=== PATIENT | male | born 1995 | race Caucasian/White ===

== ENCOUNTER 2024-07-13 11:33 | Emergency (ER) | payer MEDICAID ==
[~2024-07-13] VITALS: Ht 172.7 cm; Wt 65.0 kg
[2024-07-13 11:44] VITALS: O2SAT 100
[2024-07-13] MEDS ORDERED: ONDANSETRON 4MG ODT PO ONE (12:45)
[2024-07-13] MEDS ORDERED: FAMOTIDINE 20MG TABLET PO ONE (12:45)
[2024-07-13] MEDS ORDERED: MAGNESIUM/ALUMINUM HYDROXIDE/SIMETHICONE 30ML UDC PO ONE (12:45)
[2024-07-13 12:48] LABS: BASOPHILS % 0.3 % (0.0-2.0); EOSINOPHILS % 2.6 % (0.0-5.0); HEMATOCRIT. 45.1 % (42.0-52.0); HEMOGLOBIN. 15.1 g/dL (14.0-18.0); LYMPHOCYTES % 37.6 % (20.0-50.0); MEAN CORPUSCULAR HEMOGLOBIN 28.7 pg (28.0-32.0); MEAN CORPUSCULAR HGB CONC 33.5 g/dL (31.0-37.0); MEAN CORPUSCULAR VOLUME 85.6 fL (80.0-94.0); MEAN PLATELET VOLUME 7.2 fl (7.4-10.4); MONOCYTES % 9.6 % (2.0-8.0); NEUTROPHILS % 49.9 % (40.0-76.0); PLATELET 363 x1000/uL (130-400); RED BLOOD CELL COUNT 5.27 mill/uL (4.7-6.1); RED CELL DISTRIBUTION WIDTH 12.9 % (11.6-14.6); WHITE BLOOD COUNT 6.1 x1000/uL (4.5-11.0)
[2024-07-13 13:22] LABS: CHLORIDE 103 mEq/L (98-107); POTASSIUM 3.8 mEq/L (3.5-5.1); SODIUM 140 mEq/L (136-145)
[2024-07-13 13:23] LABS: CARBON DIOXIDE 25 mEq/L (21-32)
[2024-07-13 13:24] LABS: CALCIUM 9.9 mg/dL (8.7-10.4)
[2024-07-13 13:28] LABS: CREATININE 0.9 mg/dL (0.6-1.3)
[2024-07-13 13:29] LABS: GLUCOSE 100 mg/dL (70-105); UREA NITROGEN BLOOD 7 mg/dL (9-23)
[2024-07-13 13:30] LABS: ALANINE AMINOTRANSFERASE 39 IU/L (10-49); ASPARTATE AMINOTRANSFERASE 30 IU/L (<34)
[2024-07-13 13:31] LABS: ALBUMIN 4.9 g/dL (3.2-4.8); BILIRUBIN DIRECT 0.2 mg/dL (<=3.0); BILIRUBIN TOTAL 0.5 mg/dL (0.1-1.0); PROTEIN TOTAL 7.8 g/dL (6.0-8.3)
[2024-07-13] MEDS: ONDANSETRON 4MG ODT PO NR (16:08)
[2024-07-13] MEDS: MAGNESIUM/ALUMINUM HYDROXIDE/SIMETHICONE 30ML UDC PO NR (16:08)
[2024-07-13] MEDS: VISCOUS LIDOCAINE 2% 15 ML UDC PO SCH (16:08)
[2024-07-13] MEDS: FAMOTIDINE 20MG TABLET PO NR (16:08)
[2024-07-13] MEDS ORDERED: FAMO-135 MT (16:52)
[2024-07-13] MEDS ORDERED: MAG355OR21 MT (16:52)
[2024-07-13 17:01] VITALS: BP 119/63; PULSE 78; RESP 18; TEMP 36.78072; O2SAT 100
== END 2024-07-13 17:06 | disposition home or self-care (01) ==
LOC: ER 11:33
DX: R10.84 Generalized abdominal pain (principal)
CPT/HCPCS: 99284; 80076; 80048; 83690; 85025; 36415; Q0162

== ENCOUNTER 2024-07-16 11:34 | Emergency (ER) | payer MEDICAID ==
[~2024-07-16] VITALS: Ht 175.3 cm; Wt 68.0 kg
[~2024-07-16 11:34] MED LIST: FAMO-135 MT; MAG355OR21 MT
[2024-07-16 11:39] VITALS: BP 111/76; PULSE 80; RESP 16; TEMP 98.7; O2SAT 98
[2024-07-16 12:26] LABS: HEMATOCRIT 44.7 % (42.0-52.0); HEMOGLOBIN 15.3 g/dL (14.0-18.0); MEAN CORPUSCULAR HEMOGLOBIN 29.1 pg (28.0-32.0); MEAN CORPUSCULAR HGB CONC 34.2 g/dL (31.0-37.0); MEAN CORPUSCULAR VOLUME 85.1 fL (80.0-94.0); PLATELET 323 x1000/uL (130-400); RED BLOOD CELL COUNT 5.25 mill/uL (4.7-6.1); RED CELL DISTRIBUTION WIDTH 12.9 % (11.6-14.6); WHITE BLOOD COUNT 5.2 x1000/uL (4.5-11.0)
[2024-07-16 12:27] LABS: CHLORIDE 102 mEq/L (98-107); POTASSIUM 3.8 mEq/L (3.5-5.1); SODIUM 138 mEq/L (136-145)
[2024-07-16 12:28] LABS: CARBON DIOXIDE 27 mEq/L (21-32)
[2024-07-16 12:29] LABS: CALCIUM 9.9 mg/dL (8.7-10.4)
[2024-07-16 12:33] LABS: CREATININE 0.9 mg/dL (0.6-1.3); GLUCOSE 101 mg/dL (70-105)
[2024-07-16 12:34] LABS: UREA NITROGEN BLOOD 7 mg/dL (9-23)
[2024-07-16] MEDS ORDERED: ONDA-239 PO (13:02)
[2024-07-16 13:06] LABS: CLARITY URINE CLOUDY (CLEAR); COLOR URINE YELLOW (YELLOW); GLUCOSE URINE NEGATIVE (NEGATIVE); KETONES URINE NEGATIVE (NEGATIVE); LEUKOCYTE ESTERASE URINE NEGATIVE (NEGATIVE); NITRITE URINE NEGATIVE (NEGATIVE); OCCULT BLOOD URINE NEGATIVE (NEGATIVE); PROTEIN URINE NEGATIVE (NEGATIVE); SPECIFIC GRAVITY URINE 1.019 (1.005-1.030); UROBILINOGEN URINE 0.2 E.U./dL (0.2-1.0)
[2024-07-16 13:16] LABS: MUCUS URINE 3+ /lpf (NONE/TRACE)
[2024-07-16 13:17] LABS: AMORPHOUS SEDIMENT URINE 3+ /lpf; BACTERIA URINE NONE SEEN; RBC URINE NONE SEEN /hpf (0-2); SQUAMOUS EPITHELIAL CELL URINE RARE /lpf (RARE/1+); WBC URINE 0-2 /hpf (0-2)
== END 2024-07-16 13:42 | disposition home or self-care (01) ==
LOC: ER 11:42
DX: K29.70 Gastritis, unspecified, without bleeding (principal)
CPT/HCPCS: 36415; 80048; 81003; 85027; 99283

== ENCOUNTER 2024-11-21 23:10 | Emergency (ER) | payer MEDICAID ==
[~2024-11-21] VITALS: Ht 175.3 cm; Wt 75.0 kg
[~2024-11-21 23:10] MED LIST changes: +ONDA-239 PO
[2024-11-21 23:30] VITALS: O2SAT 100
[2024-11-21 23:31] VITALS: BP 118/68; PULSE 84; RESP 18; TEMP 36.9; O2SAT 100
[2024-11-22] MEDS ORDERED: NA P133E RC (04:44)
[2024-11-22] MEDS ORDERED: POLY17PO3 MT (04:44)
[2024-11-22] MEDS ORDERED: DOCU-422 MT (04:44)
[2024-11-22] MEDS: DOCUSATE SODIUM 100MG CAPSULE PO ONE (05:10)
[2024-11-22] MEDS: POLYETHYLENE GLYCOL 3350 (17GM) 1 DOSE PACK PO ONE (05:10)
== END 2024-11-22 05:10 | disposition home or self-care (01) ==
LOC: ER 23:10
DX: K59.00 Constipation, unspecified (principal); Z79.899 Other long term (current) drug therapy
CPT/HCPCS: 99283; Z7610